=== PATIENT | male | born 1980 ===

== ENCOUNTER 2018-11-24 09:31 | Emergency (ER) | payer OTHER ==
--- NOTE | 2018-11-24 09:40 | UC ---
Respiratory Complaint HPI - HPI Summary HPI Summary: Patient is a 38 year old gentleman, who present today to the urgent care with cough for past 7 days. Reports sore throat and cough productive of clear mucus. [place] feverish with some fatigue but denies any body aches. Denies any sick contact Overall feels that his sore throat is getting better but continues to cough No skin rash.Denies any chest pain or shortness of breath . No diaphoresis. Denies any abdominal pain , nausea or vomiting , diarrhea or constipation. - History of Current Complaint Stated Complaint: COUGH Time Seen by Provider: 11/24/18 09:38 Hx Obtained From: Patient - Allergies/Home Medications Allergies/Adverse Reactions: Allergies Allergy/AdvReac Type Severity Reaction Status Date / Time No Known Allergies Allergy Verified 11/24/18 09:43 PMH/Surg Hx/FS Hx/Imm Hx - Additional Past Medical History Additional PMH: No significant past medical history other than seasonal allergies Previously Healthy: Yes Review of Systems All Other Systems Reviewed And Are Negative: Yes Constitutional: Positive: Fever - [place] feverish, Fatigue Skin: Positive: Negative Eyes: Positive: Negative ENT: Positive: Sore Throat Respiratory: Positive: Cough - Productive of clear phlegm Cardiovascular: Positive: Negative Gastrointestinal: Positive: Negative Genitourinary: Positive: Negative Motor: Positive: Negative Neurovascular: Positive: Negative Musculoskeletal: Positive: Negative Neurological: Positive: Negative Psychological: Positive: Negative Is Patient Immunocompromised?: No Physical Exam - Summary Physical Exam Summary: Physical Exam: Const: Appears well. No signs of apparent distress present. Alert and oriented x 3. Musculo: Walks with a normal gait. Head/Face: Atraumatic, normocephalic on inspection. Eyes: EOMI and PERRLA in both eyes. Conjunctivae clear. No discharge noted ENT: Hearing normal, TM normal appearing on the right side with, minimal erythema on the left without any bulging or fluid No tenderness to palpation on maxillary and frontal sinus. Minimal pharyngeal erythema without any exudates . Uvula is midline. No cervical or submandibular lymphadenopathy noted. Respiratory: Respirations are unlabored. Lungs clear to auscultation bilaterally, no wheezing , rhonchi or rales noted . CVS: Regular rate and Rhythm, S1S2 normal , no murmurs identified. Extremities: Peripheral circulation is grossly normal. Pulses 2+ Abdomen : Soft non tender , nondistended , Bowel sounds present . No guarding , rebound tenderness or rigidity noted. Skin: No lesions or rash located on the upper extremities or on the lower extremities. Neuro: Cranial nerves II to XII intact, motor and sensory intact. DTR Intact bilaterally. Mood is normal. Affect is normal. Triage Information Reviewed: Yes Vital Signs Reviewed: Yes Respiratory Course/Dx - Course Course Of Treatment: During the visit today, we obtained a rapid strep test which was negative. We discussed the findings which appeared to be consistent with viral illness. And further plan. I will prescribe the medication to the pharmacy . Patient expressed understanding . - Differential Dx/Diagnosis Provider Diagnosis: Viral syndrome Discharge - Sign-Out/Discharge Documenting (check all that apply): Patient Departure All imaging exams completed and their final reports reviewed: No Studies - Discharge Plan Condition: Stable Disposition: HOME Prescriptions: Benzonatate CAP* [Tessalon 100 MG CAP*] 100 mg PO TID PRN 10 Days #30 cap PRN Reason: Cough Patient Education Materials: Viral Syndrome (ED) Referrals: No Primary Care Phys,NOPCP [Primary Care Provider] - Additional Instructions: Please start taking the medication as prescribed to the pharmacy . Salt water gargles will be helpful Throat lozenges as needed Follow up at [facility] within a week if no improvement Patients blood pressure slightly high in Urgent care today (prehypertensive range) , plan follow up with PCP for better control Return to Urgent care / ER if symptoms get worse. - Billing Disposition and Condition Condition: STABLE Disposition: Home
[2018-11-24 09:43] VITALS: BP 135/89
== END 2018-11-24 10:35 | disposition home or self-care (01) ==
LOC: UCEAST 09:31
DX: B34.9 Viral infection, unspecified (principal); J02.9 Acute pharyngitis, unspecified; R05 Cough
CPT/HCPCS: 87651; 99202; G0463